=== PATIENT | female | born 2000 | race Caucasian/White ===

== ENCOUNTER 2025-02-09 15:21 | Emergency (ER) | payer MEDICAID ==
[~2025-02-09] VITALS: Ht 157.5 cm; Wt 91.0 kg
[2025-02-09 15:28] VITALS: O2SAT 98
[2025-02-09 16:00] LABS: BASOPHILS % 0.7 % (0.0-2.0); EOSINOPHILS % 2.5 % (0.0-5.0); HEMATOCRIT. 38.6 % (36.0-48.0); HEMOGLOBIN. 12.7 g/dL (12.0-16.0); LYMPHOCYTES % 35.2 % (20.0-50.0); MEAN CORPUSCULAR HEMOGLOBIN 29.4 pg (28.0-32.0); MEAN CORPUSCULAR VOLUME 88.9 fL (81.0-99.0); MEAN PLATELET VOLUME 9.4 fl (7.4-10.4); MONOCYTES % 6.5 % (2.0-8.0); NEUTROPHILS % 55.1 % (40.0-76.0); PLATELET 249 x1000/uL (130-400); RED BLOOD CELL COUNT 4.34 mill/uL (4.2-5.4); RED CELL DISTRIBUTION WIDTH 13.7 % (11.6-14.6); WHITE BLOOD COUNT 10.1 x1000/uL (4.5-11.0)
[2025-02-09 16:04] LABS: HCG SCREEN POSITIVE
[2025-02-09 16:05] LABS: CHLORIDE 108 mEq/L (98-107); SODIUM 139 mEq/L (136-145)
[2025-02-09 16:06] LABS: CALCIUM 9.6 mg/dL (8.7-10.4); CARBON DIOXIDE 23 mEq/L (21-32)
[2025-02-09 16:11] LABS: CREATININE 0.6 mg/dL (0.6-1.0); GLUCOSE 94 mg/dL (70-105); UREA NITROGEN BLOOD 9 mg/dL (9-23)
[2025-02-09 16:13] LABS: ALANINE AMINOTRANSFERASE 41 IU/L (10-49); ALBUMIN 4.6 g/dL (3.2-4.8); ASPARTATE AMINOTRANSFERASE 28 IU/L (<34); BILIRUBIN DIRECT 0.1 mg/dL (<=3.0)
[2025-02-09 16:14] LABS: BILIRUBIN TOTAL 0.5 mg/dL (0.1-1.0)
[2025-02-09] MEDS: ONDANSETRON 4MG ODT PO ONE (16:49)
[2025-02-09 19:05] VITALS: BP 119/64; PULSE 84; RESP 18; TEMP 36.8; O2SAT 98
== END 2025-02-09 19:06 | disposition home or self-care (01) ==
LOC: ER 15:21
DX: O26.891 Other specified pregnancy related conditions, first trimester (principal); N83.11 Corpus luteum cyst of right ovary; Z3A.01 Less than 8 weeks gestation of pregnancy
CPT/HCPCS: 99284; 76801; 80076; 80048; 84703; 84702; 83690; 85025; 86850; 86900; 86901; 36415; 76817; Q0162

== ENCOUNTER 2025-02-16 12:02 | Emergency (ER) | payer MEDICAID ==
[~2025-02-16] VITALS: Ht 154.9 cm; Wt 65.7 kg
[2025-02-16 12:07] VITALS: O2SAT 99
[2025-02-16 12:09] VITALS: BP 117/72; PULSE 91; RESP 16; TEMP 36.7; O2SAT 99
== END 2025-02-16 14:22 | disposition home or self-care (01) ==
LOC: ER 12:02
DX: O26.891 Other specified pregnancy related conditions, first trimester (principal); N89.8 Other specified noninflammatory disorders of vagina; Z3A.01 Less than 8 weeks gestation of pregnancy
CPT/HCPCS: 36415; 76801; 84702; 99284

== ENCOUNTER 2025-02-28 16:32 | Emergency (ER) | payer MEDICAID ==
[~2025-02-28] VITALS: Ht 160 cm; Wt 63.0 kg
[2025-02-28 16:36] VITALS: O2SAT 99
[2025-02-28 17:13] LABS: BASOPHILS % 0.4 % (0.0-2.0); EOSINOPHILS % 2.5 % (0.0-5.0); HEMATOCRIT. 37.6 % (36.0-48.0); HEMOGLOBIN. 12.4 g/dL (12.0-16.0); LYMPHOCYTES % 25.6 % (20.0-50.0); MEAN CORPUSCULAR HEMOGLOBIN 29.3 pg (28.0-32.0); MEAN CORPUSCULAR VOLUME 88.9 fL (81.0-99.0); MEAN PLATELET VOLUME 9.6 fl (7.4-10.4); MONOCYTES % 6.7 % (2.0-8.0); NEUTROPHILS % 64.8 % (40.0-76.0); PLATELET 220 x1000/uL (130-400); RED BLOOD CELL COUNT 4.23 mill/uL (4.2-5.4); RED CELL DISTRIBUTION WIDTH 13.4 % (11.6-14.6); WHITE BLOOD COUNT 9.9 x1000/uL (4.5-11.0)
[2025-02-28 17:21] LABS: CHLORIDE 105 mEq/L (98-107); POTASSIUM 3.8 mEq/L (3.5-5.1); SODIUM 139 mEq/L (136-145)
[2025-02-28 17:22] LABS: CALCIUM 9.2 mg/dL (8.7-10.4); CARBON DIOXIDE 25 mEq/L (21-32)
[2025-02-28 17:27] LABS: CREATININE 0.6 mg/dL (0.6-1.0); GLUCOSE 90 mg/dL (70-105); UREA NITROGEN BLOOD 6 mg/dL (9-23)
[2025-02-28 17:40] LABS: B-HCG QUANTITATIVE 63054 mIU/mL (<6)
[2025-02-28 17:47] LABS: CLARITY URINE CLEAR (CLEAR); COLOR URINE YELLOW (YELLOW); GLUCOSE URINE 2+ (NEGATIVE); KETONES URINE NEGATIVE (NEGATIVE); LEUKOCYTE ESTERASE URINE NEGATIVE (NEGATIVE); NITRITE URINE NEGATIVE (NEGATIVE); OCCULT BLOOD URINE 1+ (NEGATIVE); PH URINE 6.5 (4.5-8.0); PROTEIN URINE NEGATIVE (NEGATIVE)
[2025-02-28 18:18] LABS: BACTERIA URINE TRACE; RBC URINE NONE SEEN /hpf (0-2); SQUAMOUS EPITHELIAL CELL URINE 2+ /lpf (RARE/1+); WBC URINE 0-2 /hpf (0-2)
[2025-02-28] MEDS: ONDANSETRON 4MG ODT PO ONE (21:05)
[2025-02-28] MEDS: ACETAMINOPHEN 500MG TABLET PO ONE (21:06)
[2025-02-28 21:43] VITALS: BP 118/74; PULSE 78; RESP 20; TEMP 36.9; O2SAT 99
== END 2025-02-28 21:45 | disposition home or self-care (01) ==
LOC: ER 16:32
DX: O20.8 Other hemorrhage in early pregnancy (principal); O21.0 Mild hyperemesis gravidarum; Z3A.01 Less than 8 weeks gestation of pregnancy
CPT/HCPCS: 99284; 76801; 80048; 81003; 84702; 83690; 85025; 86850; 86900; 86901; 36415; Q0162; A4606

== ENCOUNTER 2025-08-24 17:28 | Emergency (ER) | payer MEDICAID, OTHER ==
[~2025-08-24] VITALS: Ht 162.6 cm; Wt 79.0 kg
[2025-08-24 17:38] VITALS: O2SAT 98
[2025-08-24] MEDS: ACETAMINOPHEN 500MG TABLET PO ONE (18:25)
[2025-08-24 18:28] LABS: BASOPHILS % 0.5 % (0.0-2.0); EOSINOPHILS % 3.0 % (0.0-5.0); HEMATOCRIT. 36.7 % (36.0-48.0); HEMOGLOBIN. 12.4 g/dL (12.0-16.0); LYMPHOCYTES % 21.3 % (20.0-50.0); MEAN PLATELET VOLUME 10.0 fl (7.4-10.4); MONOCYTES % 6.6 % (2.0-8.0); NEUTROPHILS % 68.6 % (40.0-76.0); PLATELET 178 x1000/uL (130-400); RED BLOOD CELL COUNT 4.00 mill/uL (4.2-5.4); RED CELL DISTRIBUTION WIDTH 14.5 % (11.6-14.6)
[2025-08-24 18:44] LABS: CREATININE 0.5 mg/dL (0.6-1.0); HCG SCREEN POSITIVE; UREA NITROGEN BLOOD < 5 mg/dL (9-23)
[2025-08-24 18:46] LABS: ASPARTATE AMINOTRANSFERASE 17 IU/L (<34); BILIRUBIN DIRECT < 0.1 mg/dL (<=3.0); BILIRUBIN TOTAL 0.3 mg/dL (0.1-1.0); PROTEIN TOTAL 6.6 g/dL (6.0-8.3)
[2025-08-24 19:00] LABS: B-HCG QUANTITATIVE 37776 mIU/mL (<6)
[2025-08-24] MEDS: SODIUM CHLORIDE 0.9% 1,000 ML IV ONE (19:40)
[2025-08-24 20:09] LABS: CLARITY URINE CLEAR (CLEAR); COLOR URINE YELLOW (YELLOW); GLUCOSE URINE 2+ (NEGATIVE); KETONES URINE NEGATIVE (NEGATIVE); LEUKOCYTE ESTERASE URINE NEGATIVE (NEGATIVE); NITRITE URINE NEGATIVE (NEGATIVE); OCCULT BLOOD URINE NEGATIVE (NEGATIVE); PH URINE 7.5 (4.5-8.0); PROTEIN URINE NEGATIVE (NEGATIVE); SPECIFIC GRAVITY URINE 1.007 (1.005-1.030); UROBILINOGEN URINE 0.2 E.U./dL (0.2-1.0)
[2025-08-24 20:34] LABS: BACTERIA URINE TRACE; RBC URINE 0-2 /hpf (0-2); SQUAMOUS EPITHELIAL CELL URINE 1+ /lpf (RARE/1+); WBC URINE 0-2 /hpf (0-2)
[2025-08-24 21:23] VITALS: BP 106/61; PULSE 77; RESP 18; TEMP 36.8; O2SAT 99
== END 2025-08-24 21:51 | disposition home or self-care (01) ==
LOC: ER 17:28
DX: O26.893 Other specified pregnancy related conditions, third trimester (principal); R10.20 Pelvic and perineal pain unspecified side; Z3A.33 33 weeks gestation of pregnancy
CPT/HCPCS: 99284; 96360; 80076; 80048; 81003; 84703; 84702; 83690; 85025; 86850; 86900; 86901; 36415; 76815; J7030; A4606